=== PATIENT | female | born 2000 | race Caucasian/White ===

== ENCOUNTER 2021-05-07 22:13 | Emergency (ER) | payer BC ==
[2021-05-07] MEDS ORDERED: HYDROmorphone 0.5 MG/0.5 ML Syringe IVPUSH ONE (23:36)
[2021-05-07] MEDS ORDERED: Ondansetron 4 MG/2 ML SDV IVPUSH ONE (23:36)
[2021-05-07] MEDS ORDERED: Sodium Chloride 0.9% 10 ML Syringe FLUSH PRN (23:36)
[2021-05-07] MEDS ORDERED: Iopamidol 612 MG/ML 100 ML Bottle IV SCH (23:45)
[2021-05-07] MEDS ORDERED: Sodium Chloride 0.9% 10 ML Syringe FLUSH ONE (23:53)
[2021-05-08] MEDS ORDERED: Albuterol/Ipratropium 3.0-0.5 MG/3 ML Neb Soln NEB ONE
--- NOTE | 2021-05-08 01:14 | CRLCT ---
For Patients: As a result of the Century Cures Act, medical imaging exams and procedure reports are released immediately into your electronic medical record. You may view this report before your referring provider. If you have questions, please contact your health care provider. Indication: RLQ PAIN, ACUTE ABDOMEN Technique: Postcontrast CT abdomen and pelvis. 84 cc Isovue-300 intravenous contrast. Please note that all CT scans at this facility use dose modulation, iterative reconstruction, and/or weight-based dosing when appropriate to reduce radiation dose to as low as reasonably achievable. Comparison: None Findings: The cecum and right colon are markedly distended with stool. Nondistended loops of small bowel. A moderately large volume of pelvic free fluid is present. No abscess or free air. There is a cyst within the right ovary measuring 2.4 cm. The left ovary appears normal. No uterine fibroid. IUD appropriately located within the uterus. No hydronephrosis or renal stone. Ureters normal. Normal liver and gallbladder. Normal spleen and pancreas. No evidence of appendicitis. Osseous structures normal. Lung bases clear. Impression: Moderately enlarged volume of pelvic free fluid. 2.4 cm right ovarian cyst. Pelvic ultrasound recommended for further evaluation to exclude torsion. No evidence of appendicitis. Large amount of stool within the right colon consistent with constipation. Please note that all CT scans at this facility use dose modulation, iterative reconstruction, and/or weight-based dosing when appropriate to reduce radiation dose to as low as reasonably achievable. Dictated by Ru Vera MD @ 05/08/2021 1:12:[address] Ru Vera @ May 08 2021 1:12AM
--- NOTE | 2021-05-08 01:36 | EDM.PDOC ---
ED HPI GENERAL MEDICAL PROBLEM - General Chief Complaint: Abdominal Pain Stated Complaint: PAIN ON RIGHT SIDE Time Seen by Provider: 05/07/21 23:07 Source of Information: Reports: Patient History Limitations: Reports: No Limitations - History of Present Illness INITIAL COMMENTS - FREE TEXT/NARRATIVE: Mariann is a 20-year-old female presenting to the ED for evaluation of acute ons et of right lower quadrant abdominal pain starting about an hour prior to arrival. The patient has a history significant for a recent appendicitis status post appendectomy in December 2020. She was seen about a month later for recurrence of right lower quadrant abdominal pain and had a visit at the clinic in [place] where she attends [facility] but they were not able to find the source of her pain. She was hospitalized in February back in [place] where her home is with a possible pericecal abscess that they attributed to her recent appendectomy. At that time she was hospitalized and given IV antibiotics due to the findings on the CT of the abdomen and pelvis. The patient has been pain-free until tonight when she started develop severe right lower quadrant abdominal pain, nausea but no vomiting. She denies any fever or chills. She has had no change in appetite. She reports having normal bowel movements. Right Lower Abdomen Pain Score (Numeric/FACES): 7 - Related Data Allergies Allergy/AdvReac Type Severity Reaction Status Date / Time No Known Allergies Allergy Verified 05/07/21 22:49 Home Meds: Home Meds FLUoxetine HCl [Prozac] 1 tab PO DAILY 05/07/21 [History] Past Medical History - Past Surgical History GI Surgical History: Reports: Appendectomy Social & Family History - Tobacco Use Tobacco Use Status *Q: Current Some Day Tobacco User Years of Tobacco use: 2 Packs/Tins Daily: 1 ED ROS GENERAL - Review of Systems Review Of Systems: See Below Constitutional: Reports: No Symptoms HEENT: Reports: No Symptoms Respiratory: Reports: No Symptoms Cardiovascular: Reports: No Symptoms Endocrine: Reports: No Symptoms GI/Abdominal: Reports: Abdominal Pain (Right lower quadrant abdominal pain), Nausea : Reports: No Symptoms Musculoskeletal: Reports: No Symptoms Skin: Reports: No Symptoms Neurological: Reports: No Symptoms Psychiatric: Reports: No Symptoms Hematologic/Lymphatic: Reports: No Symptoms Immunologic: Reports: No Symptoms ED EXAM, GI/ABD - Physical Exam Exam: See Below Exam Limited By: No Limitations General Appearance: Alert, Anxious, Moderate Distress Eyes: Bilateral: EOMI Throat/Mouth: Normal Inspection, Normal Lips, Normal Oropharynx, Normal Voice, No Airway Compromise Head: Atraumatic, Normocephalic Neck: Normal Inspection, Supple, Non-Tender, Full Range of Motion Respiratory/Chest: No Respiratory Distress, Lungs Clear, Normal Breath Sounds Cardiovascular: Normal Peripheral Pulses, Regular Rate, Rhythm, No Murmur GI/Abdominal Exam: Normal Bowel Sounds, Soft, Guarding (Significant guarding in the right lower quadrant), Rebound (Rebound tenderness), Tender (Right lower quadrant). No: Rigid Back Exam: Normal Inspection Extremities: Normal Inspection, Normal Range of Motion, Normal Capillary Refill Neurological: Alert, Oriented, Normal Cognition, No Motor/Sensory Deficits Psychiatric: Normal Affect, Anxious Skin Exam: Warm, Dry, Intact, Normal Color Lymphatic: No Adenopathy Course - Vital Signs Last Recorded V/S: Last Vital Signs Temp 36.5 C 05/07/21 22:38 Pulse 110 H 05/07/21 22:38 Resp 16 05/07/21 22:38 BP 118/67 05/07/21 22:38 Pulse Ox 96 05/07/21 22:38 - Orders/Labs/Meds Orders: Active Orders 24 hr Category Date Time Status Pelvis Non OB Comp [US] Stat Exams 05/08/21 01:37 Taken VL Duplex Abd Pel Ret Ltd [US] Stat Exams 05/08/21 03:04 Taken Saline Lock Insert [OM.PC] Routine Oth 05/07/21 23:36 Ordered Labs: Laboratory Tests 05/08/21 05/08/21 Range/Units 00:05 00:05 WBC 17.9 H (4.5-11.0) K/uL RBC 3.90 (3.30-5.50) M/uL Hgb 11.9 L (12.0-15.0) g/dL Hct 34.1 L (36.0-48.0) % MCV 87 (80-98) fL MCH 31 (27-31) pg MCHC 35 (32-36) % Plt Count 306 (150-400) K/uL Neut % (Auto) 91.2 H (36-66) % Lymph % (Auto) 5.3 L (24-44) % Loving % (Auto) 2.9 (2-6) % Eos % (Auto) 0.5 L (2-4) % Baso % (Auto) 0.1 (0-1) % Sodium 140 (140-148) mmol/L Potassium 3.8 (3.6-5.2) mmol/L Chloride 104 (100-108) mmol/L Carbon Dioxide 25 (21-32) mmol/L Anion Gap 11.5 (5.0-14.0) mmol/L BUN 13 (7-18) mg/dL Creatinine 0.5 L (0.6-1.0) mg/dL Est Cr Clr Drug Dosing 135.43 mL/min Estimated GFR (MDRD) > 60 (>60) Glucose 104 (74-106) mg/dL Calcium 8.6 (8.5-10.1) mg/dL Total Bilirubin 0.3 (0.2-1.0) mg/dL AST 14 L (15-37) U/L ALT 15 (12-78) U/L Alkaline Phosphatase 38 L (46-116) U/L C-Reactive Protein < 0.05 (0.0-0.3) mg/dL Total Protein 6.6 (6.4-8.2) g/dL Albumin 3.8 (3.4-5.0) g/dL Globulin 2.8 (2.3-3.5) g/dL Albumin/Globulin Ratio 1.4 (1.2-2.2) Meds: Medications Discontinued Medications Generic Name Dose Route Start Last Admin Trade Name Freq PRN Reason Stop Dose Admin Albuterol/Ipratropium 3 ml 05/08/21 00:00 05/08/21 00:03 Albuterol/Ipratropium 3.0-0.5 Mg/3 Ml Neb Soln NEB 05/08/21 00:01 Not Given ONETIME ONE Hydromorphone HCl 0.5 mg 05/07/21 23:36 05/07/21 23:47 Hydromorphone 0.5 Mg/0.5 Ml Syringe IVPUSH 05/07/21 23:37 0.5 mg ONETIME ONE Administration Sodium Chloride 70 mls @ 3 mls/sec 05/07/21 23:45 05/08/21 00:13 Normal Saline IV 3 mls/sec ASDIRECTED TIA Administration Iopamidol 84 ml 05/07/21 23:45 05/08/21 00:12 Iopamidol 612 Mg/Ml 100 Ml Bottle IV 84 ml . DIRECTED TIA Administration Ketorolac Tromethamine 30 mg 05/08/21 03:06 05/08/21 03:09 Ketorolac 30 Mg/Ml Sdv IVPUSH 05/08/21 03:07 30 mg ONETIME ONE Administration Ondansetron HCl 4 mg 05/07/21 23:36 05/07/21 23:45 Ondansetron 4 Mg/2 Ml Sdv IVPUSH 05/07/21 23:37 4 mg ONETIME ONE Administration Sodium Chloride 10 ml 05/07/21 23:36 05/07/21 23:47 Sodium Chloride 0.9% 10 Ml Syringe FLUSH 10 ml ASDIRECTED PRN Administration Keep Vein Open Sodium Chloride 10 ml 05/07/21 23:53 05/08/21 00:13 Sodium Chloride 0.9% 10 Ml Syringe FLUSH 05/07/21 23:54 10 ml ONETIME ONE Administration - Radiology Interpretation Free Text/Narrative:: I reviewed the images of the CT of the abdomen and pelvis with contrast as well as the report. There is a significant amount of stool throughout the cecum and right ascending colon without evidence for pericolonic stranding or abscess formation. The loops of small bowel are nondilated. The peritoneum does have a large volume of free fluid in the pelvis. There is no abscess or free air noted in the abdomen or pelvis. There is a cyst within the right ovary measuring 2.1 cm and the left ovary appears normal. There is an IUD appearing to be in the appropriate place within the uterus. The kidneys appear normal in size without evidence for hydronephrosis or obstruction. Your ureters are normal. Liver and gallbladder are normal. Spleen and pancreas are normal. Lung bases are clear. The recommendation from radiology was to obtain ultrasound of the pelvis to rule out an ovarian torsion. I reviewed the images of the ultrasound of the pelvis with duplex showing good blood flow to both ovaries. There is a sizable anechoic cystic structure with multiple septations consistent with a follicle in the right ovary measuring 2.2 x 2.4 cm. There is a large amount of free fluid tracking from the right ovary into the pelvis likely due to a ruptured ovarian cyst that may have been hemorrhagic. - Re-Assessments/Exams Free Text/Narrative Re-Assessment/Exam: 05/08/21 03:34 I reviewed the patient's labs showing a leukocytosis of 17.9 with a hemoglobin of 11.9, hematocrit of 34.1 and platelet count of 306,000. She has 91% neutrophils. Her C-reactive protein is negative. Her comprehensive metabolic panel is unremarkable. A CT of the abdomen and pelvis with contrast was performed showing a large amount of stool throughout the cecum and right colon without evidence for obstruction. She has normal loops of small bowel without evidence for obstruction. She does have a cyst within the right ovary measuring 2.4 cm with a large amount of free fluid in the pelvis. The left ovary looked normal. She has no uterine fibroids but she does have an IUD that is appropriately located within the uterus. The kidneys, liver, gallbladder, spleen, and pancreas all appeared normal. There was no evidence for the pericecal stranding that was previously reported in March. Lung bases are clear in all osseous structures are normal. They did recommend with the free fluid in the pelvis and the large ovarian cyst that the patient undergo a office ultrasound with duplex to evaluate for possible ovarian torsion. This was performed and shows a anechoic cystic structure in the right ovary with a tract of free fluid arising from the right ovary to the pelvis likely from a ruptured hemorrhagic cyst. There was normal blood flow to both ovaries seen on duplex imaging. With this, it appears the patient has inflammation due to a ruptured ovarian cyst likely causing the leukocytosis from demargination. We will put her on Toradol 10 mg 4 times daily for the pain and Zofran 4 mg 3 times daily as needed for her nausea. At this time, the patient is suitable for discharge in satisfactory condition. Indications return to the ED were discussed. The patient had requested that copies of the imaging accompanying her, however, because the ultrasound has not been read we obtained a release of information from her and will send the information to her. Departure - Departure Time of Disposition: 03:06 Disposition: Home, Self-Care 01 Clinical Impression: Right ovarian cyst, Ruptured ovarian cyst, Slow transit constipation - Discharge Information Instructions: Ovarian Cyst, [id number] Referrals: PCP,None [Primary Care Provider] - Forms: ED Department Discharge Care Plan Goals: Your work-up today has shown that you have a large right ovarian cyst measuring 2.4 cm x 2.7 cm. The recommendation from the radiologist was to perform a CT of the pelvis to evaluate for possible torsion which would be compromising blood flow to the ovary. The ultrasound showed not only do have this ovarian cystic structure on the right ovary, but you also likely have a ruptured ovarian cyst which has caused some bleeding into the pelvis causing inflammation and elevation of your leukocyte count. The management of this is usually with the use of nonsteroidal anti-inflammatories which I am going to place you on. You are getting your first dose of that right now in the ED which is Toradol 30 mg IV. This should start to get the pain under adequate control. I am sending you home with a prescription for Toradol 10 mg 4 times a day as needed for pain control. This will likely reabsorb over the course of the next week and your pain should subside over the next 2 to 3 days. There is also findings on your CAT scan that you have significant constipation so I would increase your fluid intake and may be recommend a small laxative like Correctol or Ex-Lax that can help move your bowels along. There was no evidence in the CAT scan today of any remnants of infection from your appendicitis. Sepsis Event Note (ED) - Focused Exam Vital Signs: Vital Signs Temp Pulse Resp BP Pulse Ox 05/07/21 22:38 36.5 C 110 H 16 118/67 96 - Problem List & Annotations (1) Right ovarian cyst SNOMED Code(s): 93476485 Code(s): N83.201 - UNSPECIFIED OVARIAN CYST, RIGHT SIDE Status: Acute Priority: High (2) Ruptured ovarian cyst SNOMED Code(s): 86978701 Code(s): N83.209 - UNSPECIFIED OVARIAN CYST, UNSPECIFIED SIDE Status: Acute Priority: High (3) Slow transit constipation SNOMED Code(s): 85468349 Code(s): K59.01 - SLOW TRANSIT CONSTIPATION Status: Acute Priority: Medium - Problem List Review Problem List Initiated/Reviewed/Updated: Yes - My Orders Last 24 Hours: My Active Orders 05/07/21 23:36 Saline Lock Insert [OM.PC] Routine 05/08/21 01:37 Pelvis Non OB Comp [US] Stat 05/08/21 03:04 VL Duplex Abd Pel Ret Ltd [US] Stat - Assessment/Plan Last 24 Hours: My Active Orders 05/07/21 23:36 Saline Lock Insert [OM.PC] Routine 05/08/21 01:37 Pelvis Non OB Comp [US] Stat 05/08/21 03:04 VL Duplex Abd Pel Ret Ltd [US] Stat
[2021-05-08] MEDS ORDERED: Ketorolac 30 MG/ML SDV IVPUSH ONE (03:06)
--- NOTE | 2021-05-08 14:12 | US ---
VL Duplex Abd Pel Ret Ltd, Pelvis Non OB Comp CLINICAL HISTORY: Pelvic pain FINDINGS: Real-time transabdominal images were obtained through the pelvis with additional Doppler analysis. Uterus measures 8.2 x 5.2 x 3.6 cm. Endometrial stripe measures 5 mm. There is an ICD in place. Right ovary measures 4.9 x 3.3 x 2.6 cm. There is normal flow. There is a 2.2 x 2.4 x 2.6 cm cyst. Left ovary measures 2.8 x 2.7 x 1.6 cm. There is normal flow. There is a small amount of free fluid in the cul-de-sac. IMPRESSION: Small right ovarian cyst IUD in place Small amount of free fluid in the cul-de-sac
== END 2021-05-08 03:32 | disposition home or self-care (01) ==
LOC: JP.ED 22:13
DX: N83.201 Unspecified ovarian cyst, right side (principal); K59.01 Slow transit constipation; Z72.0 Tobacco use; Z79.899 Other long term (current) drug therapy
CPT/HCPCS: 36415; 74177; 76856; 80053; 85025; 86140; 93976; 96374; 96375; 99284; J1170; J1885; J2405; Q9967